=== PATIENT | female | born 1955 | race Caucasian/White ===

== ENCOUNTER 2024-02-12 07:36 | Observation (INO) ==
[2024-02-01 11:41] LABS: Basophils # (Auto) 0.08 K/mcL (0.00-0.30); Basophils % (Auto) 0.7 % (0.0-2.0); Eosinophils # (Auto) 0.33 K/mcL (0.00-0.70); Eosinophils % (Auto) 3.1 % (0.0-7.0); Hematocrit 42.1 % (34.1-44.9); Hemoglobin 13.7 g/dL (11.2-15.7); Lymphocytes # (Auto) 2.17 K/mcL (1.50-4.80); Lymphocytes % (Auto) 20.2 % (15.5-49.0); Mean Cell Volume 84.9 fL (80.0-100.0); Mean Corpuscular HGB Conc 32.5 g/dL (31.0-36.0); Mean Platelet Volume 9.2 fL (8.8-12.5); Monocytes # (Auto) 0.65 K/mcL (0.10-0.90); Monocytes % (Auto) 6.1 % (1.0-12.0); Neutrophils % (Auto) 69.7 % (38.0-78.0); Platelet Count 456 K/mcL (140-440); RBC 4.96 M/mcL (3.59-5.38); Red Cell Distribution Width 14.9 % (11.5-14.5); WBC 10.7 K/mcL (4.5-11.0)
[2024-02-01 12:08] LABS: INR 1.2 (0.9-1.1); Prothrombin Time 15.9 sec (11.9-14.5)
[2024-02-01 12:12] LABS: Blood Urea Nitrogen 21 mg/dL (8-23); Calcium 10.1 mg/dL (8.6-10.4); Carbon Dioxide 30 mmol/L (22-30); Chloride 92 mmol/L (96-108); Glomerular Filtration Rate 58; Glucose 116 mg/dL (70-105); Potassium 2.7 mmol/L (3.3-5.1); Sodium 137 mmol/L (133-145)
[2024-02-12 08:36] LABS: Basophils # (Auto) 0.09 K/mcL (0.00-0.30); Basophils % (Auto) 0.8 % (0.0-2.0); Eosinophils # (Auto) 0.42 K/mcL (0.00-0.70); Hematocrit 37.4 % (34.1-44.9); Hemoglobin 12.1 g/dL (11.2-15.7); Lymphocytes # (Auto) 1.88 K/mcL (1.50-4.80); Lymphocytes % (Auto) 17.7 % (15.5-49.0); Mean Cell Volume 85.6 fL (80.0-100.0); Mean Corpuscular HGB Conc 32.4 g/dL (31.0-36.0); Mean Platelet Volume 9.2 fL (8.8-12.5); Monocytes # (Auto) 0.87 K/mcL (0.10-0.90); Monocytes % (Auto) 8.2 % (1.0-12.0); Neutrophils % (Auto) 69.2 % (38.0-78.0); Platelet Count 342 K/mcL (140-440); RBC 4.37 M/mcL (3.59-5.38); Red Cell Distribution Width 14.5 % (11.5-14.5); WBC 10.6 K/mcL (4.5-11.0)
[2024-02-12 08:58] LABS: Blood Urea Nitrogen 17 mg/dL (8-23); Calcium 9.6 mg/dL (8.6-10.4); Carbon Dioxide 29 mmol/L (22-30); Chloride 95 mmol/L (96-108); Glomerular Filtration Rate 66; Glucose 110 mg/dL (70-105); Potassium 2.4 mmol/L (3.3-5.1); Sodium 136 mmol/L (133-145)
[2024-02-12] MEDS ORDERED: ePHEDrine 50 MG/ML AMPUL IV ONE (09:58)
[2024-02-12] MEDS ORDERED: PHENYLephrine 1 MG/10 ML SYRINGE (ANEST) ONE (09:58)
[2024-02-12] MEDS ORDERED: LIDOCAINE 2% PF 5 ML VIAL ONE (09:58)
[2024-02-12] MEDS ORDERED: GLYCOPYRROLATE 0.2 MG/ML VIAL IV ONE (09:58)
[2024-02-12] MEDS ORDERED: DEXAMETHASONE 10 MG/ML VIAL ONE (09:58)
[2024-02-12] MEDS ORDERED: ONDANSETRON 4 MG/2 ML VIAL ONE (09:58)
[2024-02-12] MEDS ORDERED: ePHEDrine 50 MG/5 ML SYRINGE (ANEST) IV ONE (09:59)
[2024-02-12] MEDS ORDERED: METOCLOPRAMIDE 10 MG/2 ML VIAL ONE (09:59)
[2024-02-12] MEDS ORDERED: PROPOFOL 200 MG/20 ML VIAL IV ONE (09:59)
[2024-02-12] MEDS ORDERED: FAMOTIDINE/PF 20 MG/2 ML VIAL IV ONE (09:59)
[2024-02-12] MEDS: POTASSIUM CHLORIDE 10 MEQ/100 ML BAG IV SCH (11:04)
[2024-02-12 14:08] LABS: POC Calcium, Ionized 1.16 (1.16-1.32); POC Potassium 2.3 (3.3-5.1)
[2024-02-12] MEDS ORDERED: POTASSIUM CHLORIDE 40 MEQ in DEXTROSE 5%-1/2NS 1,000 ML IV SCH (15:00)
[2024-02-12] MEDS: POTASSIUM CHLORIDE 20 MEQ TABLET PO ONE ×3 (15:32→23:59)
[2024-02-12] MEDS: ceFAZolin 2 GM in DEXTROSE 5% IN WATER 50 ML IV SCH (16:30)
[2024-02-12] MEDS: POTASSIUM CHLORIDE 40 MEQ in DEXTROSE 5% IN WATER 500 ML IV ONE (17:54)
[2024-02-12] MEDS: DEXTROSE 5%-1/2NS W/30MEQ KCL 1,000 ML IV SCH ×2 (17:54→22:15)
[2024-02-12] MEDS: DEXTROSE 5%-1/2NS W/40MEQ KCL 1,000 ML IV SCH (17:55)
[2024-02-12 21:43] LABS: Potassium 2.7 mmol/L (3.3-5.1)
[2024-02-12] MEDS ORDERED: ALBUTEROL SULFATE 60 PUFF INHALER INH PRN (21:58)
[2024-02-12] MEDS: POTTASIUM PO STA (22:19)
[2024-02-13] MEDS: METOPROLOL SUCCINATE 50 MG TAB.XL.24H PO SCH (00:09)
[2024-02-13] MEDS: OMEPRAZOLE 20 MG CAPSULE PO SCH ×2 (00:09→06:35)
[2024-02-13] MEDS: METOPROLOL SUCCINATE 50 MG TAB.XL.24H PO ONE (00:10)
[2024-02-13] MEDS: OMEPRAZOLE 20 MG CAPSULE PO ONE (00:10)
[2024-02-13] MEDS: POTASSIUM CHLORIDE 20 MEQ TABLET PO ONE (00:12)
[2024-02-13 06:51] LABS: Hemoglobin 11.2 g/dL (11.2-15.7); Mean Cell Volume 86.5 fL (80.0-100.0); Mean Corpuscular HGB Conc 32.9 g/dL (31.0-36.0); Mean Platelet Volume 9.6 fL (8.8-12.5); Platelet Count 329 K/mcL (140-440); RBC 3.93 M/mcL (3.59-5.38); Red Cell Distribution Width 14.9 % (11.5-14.5); WBC 8.8 K/mcL (4.5-11.0)
[2024-02-13 07:23] LABS: Blood Urea Nitrogen 14 mg/dL (8-23); Calcium 8.8 mg/dL (8.6-10.4); Carbon Dioxide 26 mmol/L (22-30); Chloride 102 mmol/L (96-108); Glomerular Filtration Rate 90; Glucose 129 mg/dL (70-105); Potassium 3.5 mmol/L (3.3-5.1); Sodium 138 mmol/L (133-145)
[2024-02-13] MEDS ORDERED: KETAMINE 50 MG/ML Syringe IV ONE (07:30)
[2024-02-13] MEDS ORDERED: HYDROmorphone 0.5 MG/0.5 ML SYRINGE ONE ×2 (07:30→10:32)
[2024-02-13] MEDS ORDERED: fentaNYL 100 MCG/2 ML VIAL ONE (07:30)
[2024-02-13] MEDS ORDERED: PROPOFOL 200 MG/20 ML VIAL IV ONE ×2 (07:30→08:54)
[2024-02-13] MEDS ORDERED: SUGAMMADEX SODIUM 200 MG/2 ML VIAL IV ONE (07:30)
[2024-02-13] MEDS ORDERED: GLYCOPYRROLATE 0.2 MG/ML VIAL IV ONE ×2 (07:35→08:49)
[2024-02-13] MEDS ORDERED: ROCURONIUM 10 MG/ML ML IV ONE (07:35)
[2024-02-13] MEDS ORDERED: ONDANSETRON 4 MG/2 ML VIAL ONE ×2 (07:35→09:05)
[2024-02-13] MEDS ORDERED: DEXAMETHASONE 10 MG/ML VIAL ONE (07:35)
[2024-02-13] MEDS: ceFAZolin 2 GM in DEXTROSE 5% IN WATER 50 ML IV SCH (08:29)
[2024-02-13] MEDS ORDERED: ePHEDrine 50 MG/ML AMPUL IV ONE (08:49)
[2024-02-13] MEDS ORDERED: ePHEDrine 50 MG/5 ML SYRINGE (ANEST) IV ONE (08:49)
[2024-02-13] MEDS ORDERED: IPRATROPIUM/ALBUTEROL 3 ML AMPUL.NEB NEB PRN (11:54)
[2024-02-13] MEDS ORDERED: fentaNYL 100 MCG/2 ML VIAL IV PRN (11:54)
[2024-02-13] MEDS ORDERED: ONDANSETRON 4 MG/2 ML VIAL IV PRN (11:54)
[2024-02-13] MEDS ORDERED: HYDROmorphone 0.5 MG/0.5 ML SYRINGE IV PRN ×2 (11:54→18:19)
[2024-02-13] MEDS: ACETAMINOPHEN 1,000 MG/100 ML BAG IV ONE (12:33)
[2024-02-13] MEDS: LACTATED RINGERS 1,000 ML IV SCH (14:13)
[2024-02-13] MEDS ORDERED: MAGNESIUM SULFATE 2 GM/50 ML BAG IV ONE (15:11)
[2024-02-13] MEDS ORDERED: FUROSEMIDE 20 MG TABLET PO PRN ×2 (16:43→16:45)
[2024-02-13] MEDS: ONDANSETRON 4 MG/2 ML VIAL IV PRN (18:06)
[2024-02-13] MEDS: ONDANSETRON 4 MG/2 ML VIAL ONE (18:16)
[2024-02-14] MEDS: POTASSIUM CHLORIDE 20 MEQ TABLET PO SCH (01:18)
[2024-02-14] MEDS: HYDROcodone/APAP 5/325MG TABLET PO PRN (03:20)
[2024-02-14] MEDS: HYDROcodone/APAP 5/325MG TABLET PO ONE (03:42)
[2024-02-14 06:50] LABS: Blood Urea Nitrogen 9 mg/dL (8-23); Calcium 9.1 mg/dL (8.6-10.4); Carbon Dioxide 25 mmol/L (22-30); Chloride 103 mmol/L (96-108); Glomerular Filtration Rate 90; Glucose 132 mg/dL (70-105); Potassium 3.8 mmol/L (3.3-5.1); Sodium 138 mmol/L (133-145)
[2024-02-14] MEDS: HYDROCHLOROTHIAZIDE 25 MG TABLET PO SCH (08:55)
[2024-02-14] MEDS: FUROSEMIDE 40 MG TABLET PO SCH (08:55)
[2024-02-14] MEDS ORDERED: HYDROCHLOROTHIAZIDE 25 MG TABLET PO SCH (09:00)
[2024-02-20] MEDS ORDERED: ALENDRONATE SODIUM 70 MG TABLET PO SCH (09:00)
== END 2024-02-14 15:40 | disposition home or self-care (01) ==
LOC: SUR 07:36 → MEDSUR 07:36
PROVIDERS: ADMIT Surgery Surgical Critical Care; ATTEND Surgery Surgical Critical Care